=== PATIENT | male | born 1955 | race Caucasian/White ===

== ENCOUNTER 2020-10-06 05:53 | Day surgery (SDC) | payer MEDICARE, BC ==
[2020-10-06] MEDS ORDERED: Lactated Ringers 1,000 ML IV SCH (06:30)
[2020-10-06] MEDS ORDERED: Xylocaine-Mpf 2% 5 Ml Vial ONE (08:06)
[2020-10-06] MEDS ORDERED: DIPRIVAN 200 MG/20 ML IV ONE ×2 (08:06→08:29)
[2020-10-06 09:30] VITALS: BP 159/79; PULSE 70; O2SAT 97
--- NOTE | 2020-10-07 16:31 | OP ---
SURGERY DATE: 10/06/2020 SURGERY TIME: 812 PREOPERATIVE DIAGNOSIS: 1. EPIGASTRIC ABDOMEN PAIN. POSTOPERATIVE DIAGNOSIS: 1. NODULAR AREA IN THE DUODENUM. PROCEDURE: 1. EGD. SPECIMENS: 1. There was cold forceps biopsy from nodular lesion in the duodenum. ESTIMATED BLOOD LOSS: Minimal. SURGEON: Dr. Chip Jones. ANESTHESIA: MAC by Obie Dover CRNA. DESCRIPTION OF PROCEDURE: After informed written consent was obtained, the patient was taken to the endoscopy suite. He was placed in the left lateral decubitus position. A bite block was inserted. Anesthesia was titrated to the desired level of consciousness and the endoscope was inserted in the posterior oropharynx. Under direct visualization, the esophagus was easily traversed, there was normal rugated gastric mucosa free of any lesions or defects. Upon passage of the pylorus, there was a small nodular area in the proximal duodenum. There was no bleeding, no active inflammation or other abnormalities. It was sampled with cold forceps and sent for testing. The remainder of the exam showed no abnormalities. Upon withdrawal, again the gastric mucosa, gastroesophageal junction, and esophageal mucosa all had a normal appearance. The scope was then withdrawn and the patient was transferred to the recovery room in good condition. He has been advised to follow-up in a week for pathology results.
== END 2020-10-06 09:32 | disposition home or self-care (01) ==
LOC: SDC 05:53
PROVIDERS: ATTEND Family Medicine
DX: R10.13 Epigastric pain (principal); K29.80 Duodenitis without bleeding; R11.0 Nausea; I10 Essential (primary) hypertension; Z79.899 Other long term (current) drug therapy
CPT/HCPCS: 88305; J2704

== ENCOUNTER 2023-10-10 06:00 | Day surgery (SDC) | payer MEDICARE, BC ==
[2023-10-10] MEDS ORDERED: Lactated Ringers 1,000 ML IV ONE (06:16)
[2023-10-10 06:45] VITALS: RESP 16; TEMP 97.9
[2023-10-10] MEDS: Lactated Ringers 1,000 ML IV SCH (07:02)
[2023-10-10] MEDS ORDERED: DIPRIVAN 200 MG/20 ML IV ONE ×2 (07:28→07:44)
[2023-10-10 08:51] VITALS: BP 150/75; PULSE 60; O2SAT 100
--- NOTE | 2023-10-11 14:36 | OP ---
SURGERY DATE/TIME: 10/10/2023 5435 - [id number] PREOPERATIVE DIAGNOSES: 1) Epigastric pain. 2) History of colon polyps. POSTOPERATIVE DIAGNOSES: 1) Mild gastritis. 2) Mild duodenitis. 3) Normal colon. PROCEDURES PERFORMED: Esophagogastroduodenoscopy and colonoscopy. SURGEON: Chip Jones MD ANESTHESIA: MAC. ESTIMATED BLOOD LOSS: Minimal. SPECIMENS: Two cold forceps biopsies from the duodenum and 2 cold forceps biopsies from the gastric antrum. DESCRIPTION OF PROCEDURE AND FINDINGS: After informed written consent was obtained, the patient was taken to the endoscopy suite. He was placed in the left lateral decubitus position and anesthesia was titrated to desired level of consciousness after a bite block was inserted. The endoscope was inserted in the posterior oropharynx and under direct visualization the esophagus was easily traversed. Esophageal mucosa had a normal appearance, free of any lesions or defects. GE junction had a normal mucosal appearance with normal crisp Z-line. Upon entering the gastric cavity, there was normal rugae gastric mucosa, free of any lesions or defects. Pylorus was traversed. There was some mild inflammatory change of the proximal duodenum with no ulceration or active bleeding. Two small forceps biopsies were taken from the proximal duodenum and sent for pathology. Upon withdrawal from the pylorus, there were likewise some mild gastritis-type changes with no focal ulcerations or bleeding in the gastric antrum. Two cold forceps biopsies were taken from the gastric antrum and sent for pathology testing. The remainder of the exam was unremarkable. Upon withdrawal of the scope, again all mucosal structures were inspected and noted to be free of any lesions or abnormalities. The scope was removed. Then, the scopes were switched. Digital rectal exam showed normal sphincter tone and no internal lesions. The scope was inserted in the rectum and sequentially the entire colonic mucosa was traversed. Level of cecum was reached and verified with direct visualization of the ileocecal valve. Upon careful inspection during withdrawal, there were no mucosal abnormalities appreciable. Prior to withdrawal, retroflexion showed no internal lesions. The scope was removed, and the patient was transferred to the recovery room in good condition. He has been advised to follow up in 1 week for pathology results from the EGD, and I have recommended a 5-year followup colonoscopy due to the previous history of colon polyps.
== END 2023-10-10 08:50 | disposition home or self-care (01) ==
LOC: SDC 06:00
PROVIDERS: ATTEND Family Medicine
DX: Z09 Encounter for follow-up examination after completed treatment for conditions other than malignant neoplasm (principal); Z86.010 Personal history of colon polyps; R10.13 Epigastric pain; K29.70 Gastritis, unspecified, without bleeding; K29.80 Duodenitis without bleeding
CPT/HCPCS: 93005; J2704